=== PATIENT | male | born 1940 | race Caucasian/White ===

== ENCOUNTER 2016-11-10 20:12 | Observation (INO) | payer MEDICARE ==
[~2016-11-10] VITALS: Ht 170.2 cm; Wt 94.0 kg
[2016-11-10] VITALS (7 sets, daily range): BP systolic 152–195; BP diastolic 69–94; PULSE 67–100; RESP 18; TEMP 97.8; O2SAT 94–98
[~2016-11-10 20:12] MED LIST: AMLO10TA2 PO; ASPI81CH CHEW; ATOR1TAB18 PO; Aspirin Chew CHEW; CARV25TA PO; CLOP75TA PO; FIBE625T PO; GLIP10TA6 PO; ISOS10TA3 PO; LOSA100T PO; SITA50 PO
[2016-11-10] MEDS ORDERED: NITROGLYCERIN 2% OINT 1 GM PACKET TOP ONE (20:45)
[2016-11-10] MEDS ORDERED: SODIUM CHLORIDE 0.9% FLUSH 5 ML FLUSH IVF PRN ×2 (20:45→22:15)
--- NOTE | 2016-11-10 20:47 | PD ---
HPI . Chest pain Chief Complaint: Chest Pain Time Seen by Provider: 20:29 Travel History International Travel<30 days: No Contact w/Intl Traveler<30days: No History of Present Illness HPI Patient presents with chest pain which actually started about 3 days ago. It has been coming and going. It has been relieved by nitroglycerin. He states that he decided to come in for tonight because it has just persisted. He is currently having no pain. He does state that he had some associated lightheadedness and nausea. He denies shortness of breath. Patient states that he is currently undergoing cardiac rehabilitation and is using an exercise machine that exercises his upper extremities. He has been complaining with some left shoulder pain but is unsure if this is musculoskeletal pain due to the exercise or if it is cardiac pain. PFSH Past Medical History Asthma: No Autoimmune Disease: No Blood Disorders: No Cancer: Yes (MELANOMA) Cardiovascular Problems: Yes (STENTS, STENT BEHIND LEFT KNEE DR BARNES ) High Cholesterol: Yes Chemotherapy: No Chest Pain: No COPD: No Diabetes: Yes (INSULIN) Patient Takes Glucophage: No Gastrointestinal Disorders: No GERD: Yes Glaucoma: No Genitourinary: No Hepatitis: No Hiatal Hernia: No Hypertension: Yes Immune Disorder: No Musculoskeletal: No Neurologic: No Psychiatric: No Respiratory: Yes (SLEEP APNEA) Integumentary: No Radiation Therapy: No Sickle Cell Disease: No Thyroid Disease: No Ulcer: No Past Surgical History AICD: No Coronary Stent: Yes Joint Replacement: No Pacemaker: No Other Surgery: Yes (RIGHT INGUINAL HERNIA,GALL BLADDER) Social History Alcohol Use: Yes Tobacco Use: No Substance Use: No Allergies-Medications (Allergen,Severity, Reaction): Coded Allergies: No Known Allergies (Verified , 08/16/16) Reported Meds & Prescriptions Reported Meds & Active Scripts Active Reported Clopidogrel (Clopidogrel Bisulfate) 75 Mg Tab 75 Mg PO DAILY Losartan (Losartan Potassium) 100 Mg Tab 100 Mg PO DAILY Atorvastatin (Atorvastatin Calcium) 80 Mg Tab 80 Mg PO HS Amlodipine (Amlodipine Besylate) 10 Mg Tab 10 Mg PO DAILY Fibercon (Calcium Polycarbophil) 625 Mg Tab 625 Mg PO BID PRN Aspirin 81 Mg Chew 81 Mg CHEW DAILY Januvia (Sitagliptin Phosphate) 50 Mg Tab 50 Mg PO DAILY Carvedilol 25 Mg Tab 25 Mg PO BID Glipizide 10 Mg Tab 10 Mg PO HS Take 30 minutes before a meal Glipizide 10 Mg Tab 10 Mg PO DAILY Take 30 minutes before a meal Isosorbide Mononitrate 10 Mg Tab 60 Mg PO DAILY Take 2 doses 7 hours apart. Review of Systems Except as stated in HPI: all other systems reviewed are Neg General / Constitutional: Positive: Other (no diaphoresis), No: Fever, Chills HENT: Positive: Lightheadedness Cardiovascular: Positive: Chest Pain or Discomfort Respiratory: No: Shortness of Breath Gastrointestinal: Positive: Nausea Musculoskeletal: Positive: Myalgias (left shoulder pain) Physical Exam Narrative GENERAL: Healthy-appearing man who is in no acute distress. SKIN: Warm and dry. HEAD: Atraumatic. Normocephalic. EYES: Pupils equal and round. ENT: No nasal bleeding or discharge. Mucous membranes pink and moist. NECK: Trachea midline. Neck is supple. No JVD. CARDIOVASCULAR: Regular rate and rhythm. Heart sounds are normal. RESPIRATORY: No accessory muscle use. Lungs are clear with full movement throughout. GASTROINTESTINAL: Abdomen soft, non-tender, nondistended. MUSCULOSKELETAL: No obvious deformities. No edema. NEUROLOGICAL: Awake and alert. No obvious cranial nerve deficits. Motor grossly within normal limits. Normal speech. PSYCHIATRIC: Appropriate mood and affect; insight and judgment normal. Data Data Last Documented VS Vital Signs Date Time Temp Pulse Resp B/P Pulse Ox O2 Delivery O2 Flow Rate FiO2 11/10/16 21:12 97 Nasal Cannula 2 11/10/16 21:10 84 18 179/85 11/10/16 20:16 97.8 Orders Electrocardiogram (11/10/16 ) Basic Metabolic Panel (Bmp) (11/10/16 20:38) Ckmb (Isoenzyme) Profile (11/10/16 20:38) Complete Blood Count With Diff (11/10/16 20:38) Magnesium (Mg) (11/10/16 20:38) Prothrombin Time / Inr (Pt) (11/10/16 20:38) Act Partial Throm Time (Ptt) (11/10/16 20:38) Troponin I (11/10/16 20:38) Chest, Single Ap (11/10/16 20:38) Ecg Monitoring (11/10/16 20:38) Bilateral Bp Monitoring (11/10/16 20:38) Iv Access Insert/Monitor (11/10/16 20:38) Oximetry (11/10/16 20:38) Oxygen Administration (11/10/16 20:38) Nitroglycerin 2% Oint (Nitroglycerin 2% (11/10/16 20:45) Sodium Chloride 0.9% Flush (Ns Flush) (11/10/16 20:45) CKMB (11/10/16 20:45) CKMB% (11/10/16 20:45) Labs Laboratory Tests Test 11/10/16 20:45 White Blood Count 7.7 TH/MM3 Red Blood Count 4.98 MIL/MM3 Hemoglobin 15.1 GM/DL Hematocrit 44.1 % Mean Corpuscular Volume 88.7 FL Mean Corpuscular Hemoglobin 30.4 PG Mean Corpuscular Hemoglobin 34.3 % Concent Red Cell Distribution Width 13.8 % Platelet Count 160 TH/MM3 Mean Platelet Volume 10.2 FL Neutrophils (%) (Auto) 59.5 % Lymphocytes (%) (Auto) 22.8 % Monocytes (%) (Auto) 13.4 % Eosinophils (%) (Auto) 3.3 % Basophils (%) (Auto) 1.0 % Neutrophils # (Auto) 4.6 TH/MM3 Lymphocytes # (Auto) 1.7 TH/MM3 Monocytes # (Auto) 1.0 TH/MM3 Eosinophils # (Auto) 0.3 TH/MM3 Basophils # (Auto) 0.1 TH/MM3 CBC Comment DIFF FINAL Differential Comment Prothrombin Time 11.3 SEC Prothromb Time International 1.0 RATIO Ratio Activated Partial 26.5 SEC Thromboplast Time Sodium Level 135 MEQ/L Potassium Level 4.1 MEQ/L Chloride Level 101 MEQ/L Carbon Dioxide Level 24.1 MEQ/L Anion Gap 10 MEQ/L Blood Urea Nitrogen 24 MG/DL Creatinine 1.73 MG/DL Estimat Glomerular Filtration 39 ML/MIN Rate Random Glucose 271 MG/DL Calcium Level 8.7 MG/DL Magnesium Level 2.2 MG/DL Total Creatine Kinase 126 U/L Creatine Kinase MB 2.8 NG/ML Troponin I 0.02 NG/ML [facility] Medical Decision Making Medical Screen Exam Complete: Yes Emergency Medical Condition: Yes Medical Record Reviewed: Yes (patient was here in July with a NSTEMI treated with an LAD stent. He had an echo done at that time that showed an ejection fraction of 50-55%.) Interpretation(s) EKG shows normal sinus rhythm with no ST segment elevation or depression. Differential Diagnosis Differential diagnosis of chest pain includes but is not limited to musculoskeletal pain, pulmonary embolism, acute coronary syndrome, pneumonia, pleurisy Narrative Course Patient presents for evaluation of chest pain. He has a known cardiac history. He is status post stent in July. He states that he has done well since the stent until 3 days ago. He reports that the pain that he is experiencing currently is similar but not as severe as the pain that he had in July. CBC & BMP Diagram 11/10/16 20:45 Initial cardiac enzymes are negative. Chest x-ray to my interpretation is negative. The radiologist also reads it as no acute disease. Patient is amenable to admission to the chest pain center. Patient has remained pain-free here in the emergency department. He has been treated here with Nitropaste. Critical Care Narrative Aggregate critical care time was 45 minutes. Time to perform other separately billable procedures was not included in the critical care time. My time did not include minutes spent treating any other patients simultaneously or on activities that did not directly contribute to the patient's treatment. The services I provided to this patient were to treat and/or prevent clinically significant deterioration due to ACS, NSTEMI, STEMI I provided critical care services requiring my management, as noted below: Chart data review, documentation time, medication orders and management, vital sign assessments/reviewing monitor data, ordering and reviewing lab tests, ordering and interpreting/reviewing x-rays and diagnostic studies, care of the patient and discussion of the patient with the admitting physicians Diagnosis Primary Impression: Chest pain Qualified Code: R07.9 - Chest pain, unspecified type Admitting Information Admitting Physician Requests: Observation Condition: Stable Corie Engel MD Nov 10, 2016 20:47
[2016-11-10 21:19] LABS: AUTOMATED NEUTROPHIL # 4.6 TH/MM3 (1.8-7.7); BASOPHIL # 0.1 TH/MM3 (0-0.2); EOSINOPHIL # 0.3 TH/MM3 (0-0.4); EOSINOPHIL % 3.3 % (0.0-4.0); HEMATOCRIT 44.1 % (39.0-51.0); HEMO FLAGS DIFF FINAL; LYMPH % 22.8 % (9.0-44.0); LYMPHOCYTE # 1.7 TH/MM3 (1.0-4.8); MEAN CELL VOLUME 88.7 FL (80.0-100.0); MEAN CORPUSCULAR HEMOGLOBIN 30.4 PG (27.0-34.0); MEAN CORPUSCULAR HGB CONC 34.3 % (32.0-36.0); MONO % 13.4 % (0.0-8.0); NEUT % 59.5 % (16.0-70.0); PLATELET COUNT 160 TH/MM3 (150-450); RED BLOOD COUNT 4.98 MIL/MM3 (4.50-5.90); RED CELL DISTRIBUTION WIDTH 13.8 % (11.6-17.2); WHITE BLOOD COUNT 7.7 TH/MM3 (4.0-11.0)
[2016-11-10 21:25] LABS: APTT (PATIENT) 26.5 SEC (24.3-30.1); PROTHROMBIN TIME - PATIENT 11.3 SEC (9.8-11.6)
[2016-11-10 21:31] LABS: ANION GAP 10 MEQ/L (5-15); BICARBONATE 24.1 MEQ/L (21.0-32.0); BLOOD UREA NITROGEN 24 MG/DL (7-18); CHLORIDE 101 MEQ/L (98-107); GLOMERULAR FILTRATION RATE 39 ML/MIN (>89); MAGNESIUM 2.2 MG/DL (1.5-2.5); SODIUM (NA) 135 MEQ/L (136-145)
[2016-11-10 21:32] LABS: POTASSIUM 4.1 MEQ/L (3.5-5.1)
[2016-11-10 21:36] LABS: CREATINE KINASE 126 U/L (39-308)
[2016-11-10 21:49] LABS: CKMB 2.8 NG/ML (0.5-3.6)
--- NOTE | 2016-11-10 22:04 | RADRPT ---
EXAM DATE/TIME: 11/10/2016 20:39 [facility] COMPARISON: CHEST SINGLE AP, August 16, 2016, 0:44. INDICATIONS : Chest pain, nausea, and dizziness. MEDICAL HISTORY : None. SURGICAL HISTORY : Cardiac stent. ENCOUNTER: Initial ACUITY: 1 day PAIN SCORE: 5/10 LOCATION: chest FINDINGS: A single view of the chest demonstrates the lungs to be symmetrically aerated without evidence of mas s, infiltrate or effusion. The cardiomediastinal contours are unremarkable. Osseous structures are intact. CONCLUSION: No acute disease. Herb Rankin MD on November 10, 2016 at 22:02 Board Certified Radiologist. This report was verified electronically.
[2016-11-11 00:19] VITALS: BP 144/67; PULSE 67; RESP 18; TEMP 98.8; O2SAT 98
[2016-11-11 05:29] VITALS: BP 148/80; PULSE 68; RESP 21; TEMP 98.4; O2SAT 99
[2016-11-11 05:37] VITALS: O2SAT 95
[2016-11-11 07:42] VITALS: BP 165/84; PULSE 79; RESP 20; TEMP 98.1; O2SAT 94
[2016-11-11] MEDS ORDERED: SODIUM CHLORIDE 0.9% FLUSH 5 ML FLUSH IVF SCH (09:00)
[2016-11-11] MEDS ORDERED: CLOPIDOGREL 75 MG TAB PO SCH (10:00)
[2016-11-11] MEDS ORDERED: LOSARTAN 50 MG TAB PO SCH (10:00)
[2016-11-11] MEDS ORDERED: ISOSORBIDE MONONITRATE 20 MG TAB PO SCH (10:00)
[2016-11-11] MEDS ORDERED: ASPIRIN 81 MG CHEW TAB CHEW SCH (10:00)
[2016-11-11] MEDS ORDERED: GLUCAGON 1 MG/ML VIAL IM/SQ PRN (10:15)
[2016-11-11] MEDS ORDERED: DEXTROSE 50% IN WATER 50 ML VIAL(D50) IV PRN (10:15)
--- NOTE | 2016-11-11 10:18 | HHI.HP ---
[facility] Primary Care Physician Non-Staff Chief Complaint Chest pain History of Present Illness This is a 75-year-old male with history of CAD with stenting July 2016 presents with complaint of chest pain intermittently for 3 days. States he has had at least one episode a day. Yesterday he had 3 episodes. He states they have occurred with activity but nothing strenuous. He has been strenuous activities that have not produced his discomforts. He states he has been going to cardiac rehabilitation Sunday, Sunday, and Sunday since September 27. He has had intermittent nausea and diaphoresis with his discomforts the last 3 days. He also felt lightheaded yesterday. He took a nitroglycerin yesterday which he states helped the discomfort almost immediately. Prior that the discomforts have been lasting anywhere from 30 minutes to 3 hours. He has had no shortness of breath with the symptoms. He states that it does not feel similar to when eating his stent July last year. Denies recent illness. Denies fevers or chills. Reports compliance with all his medications. He states that he saw his supervisor travel trailer Dr. Jose North 2 weeks after having his heart catheterization. Review of Systems General: Patient denies fevers, chills recent, and recent travel HEENT: Patient denies headache, sore throat, difficulty swallowing. Cardiovascular: Has the chest discomfort as mentioned above. Denies sensation of heart beating rapidly or irregularly. Mild diaphoresis. No syncope. Respiratory: Denies shortness of breath or inspirational chest discomfort. Denies coughing wheezing or hemoptysis. GI: Patient had mild nausea. Patient denies vomiting, diarrhea, abdominal pain , bloody stools. Musculoskeletal: Patient denies joint pain or edema. Denies calf pain or edema. Neurovascular: [place] a little lightheaded a couple times. Patient denies numbness, tingling, weakness in extremities. Denies headache. Endocrine: Denies polyuria and polydipsia. Hematologic: Denies easy bruising. Skin: Denies rash or itching. Past Family Social History Allergies: Coded Allergies: No Known Allergies (Verified , 08/16/16) Past Medical History CAD with recent stenting July 2016. Also had stenting 2001.He had a stent to his left leg in 2011. Has history of hypertension, diabetes, hyperlipidemia , chronic kidney disease, GERD, obesity, and peripheral vascular disease. Past Surgical History He has had heart catheterizations with stenting. He has had stenting for peripheral vascular disease in his left leg. Right inguinal hernia repair and cholecystectomy. Reported Medications Reported Meds & Active Scripts Active Reported Clopidogrel (Clopidogrel Bisulfate) 75 Mg Tab 75 Mg PO DAILY Losartan (Losartan Potassium) 100 Mg Tab 100 Mg PO DAILY Atorvastatin (Atorvastatin Calcium) 80 Mg Tab 80 Mg PO HS Amlodipine (Amlodipine Besylate) 10 Mg Tab 10 Mg PO DAILY Fibercon (Calcium Polycarbophil) 625 Mg Tab 625 Mg PO BID PRN Aspirin 81 Mg Chew 81 Mg CHEW DAILY Januvia (Sitagliptin Phosphate) 50 Mg Tab 50 Mg PO DAILY Carvedilol 25 Mg Tab 25 Mg PO BID Glipizide 10 Mg Tab 10 Mg PO HS Take 30 minutes before a meal Glipizide 10 Mg Tab 10 Mg PO DAILY Take 30 minutes before a meal Isosorbide Mononitrate 10 Mg Tab 60 Mg PO DAILY Take 2 doses 7 hours apart. Active Ordered Medications Current Medications Medications (Trade) Dose Ordered Sig/Erich Route Start Time Stop Time Status Last Admin (NS Flush) 2 ml UNSCH PRN IVF 11/10/16 20:45 (NS Flush) 2 ml UNSCH PRN IVF 11/10/16 22:15 (NS Flush) 2 ml BID IVF 11/11/16 09:00 11/11/16 09:09 (Norvasc) 10 mg DAILY PO 11/11/16 10:00 (Aspirin Chew) 81 mg DAILY CHEW 11/11/16 10:00 (Lipitor) 80 mg HS PO 11/11/16 21:00 (Coreg) 25 mg BID PO 11/11/16 21:00 (Plavix) 75 mg DAILY PO 11/11/16 10:00 (Ismo) 60 mg DAILY PO 11/11/16 10:00 (Cozaar) 100 mg DAILY PO 11/11/16 10:00 (D50w (Vial) Inj) 25 ml UNSCH PRN IV 11/11/16 10:15 (Glucagon Inj) 1 mg UNSCH PRN IM/SQ 11/11/16 10:15 Family History His father had CAD. His brother has CAD. Social History Patient has never smoked. He denies illicit drugs. He has on average 2 beers per day. He has been for 29 years. Physical Exam Vital Signs Vital Signs Date Time Temp Pulse Resp B/P Pulse Ox O2 Delivery O2 Flow Rate FiO2 11/11/16 07:42 98.1 79 20 165/84 94 11/11/16 05:37 95 Nasal Cannula 3.00 11/11/16 05:29 98.4 68 21 148/80 99 11/11/16 00:19 98.8 67 18 144/67 98 11/10/16 23:45 67 11/10/16 23:34 67 11/10/16 22:35 98 Nasal Cannula 3.00 11/10/16 22:12 80 18 152/69 97 11/10/16 21:12 97 Nasal Cannula 2 11/10/16 21:12 97 Room Air 11/10/16 21:10 84 18 179/85 97 11/10/16 20:21 97 Nasal Cannula 11/10/16 20:16 97.8 100 18 195/94 94 Room Air Physical Exam GENERAL: This is a well-nourished, well-developed patient, in no apparent distress. Patient speaks in clear complete sentences. Patient is pleasant. HEENT: Head is atraumatic and normocephalic. Neck is supple without lymphadenopathy and trachea is midline. No JVD or carotid bruits. CARDIOVASCULAR: Regular rate and rhythm without murmurs, gallops, or rubs. RESPIRATORY: Clear to auscultation. Breath sounds equal bilaterally. No wheezes , rales, or rhonchi. Chest wall is nontender. No use of accessory muscles. GASTROINTESTINAL: Abdomen is nontender, nondistended. Abdomen soft. No obvious pulsatile mass or bruit. No CVA tenderness. Strong femoral pulses bilaterally. Normal bowel sounds in all quadrants. MUSCULOSKELETAL: Patient is moving upper and lower extremities freely. No calf tenderness or edema, no Homans sign. Strong pulses in upper and lower extremities. NEUROLOGICAL: Patient is alert and oriented. Cranial nerves 2-12 are grossly intact. No focal deficits and speech is clear. SKIN: No rash and turgor is normal. Laboratory Laboratory Tests Test 11/10/16 11/10/16 11/11/16 20:45 23:45 03:00 White Blood Count 7.7 Red Blood Count 4.98 Hemoglobin 15.1 Hematocrit 44.1 Mean Corpuscular Volume 88.7 Mean Corpuscular Hemoglobin 30.4 Mean Corpuscular Hemoglobin 34.3 Concent Red Cell Distribution Width 13.8 Platelet Count 160 Mean Platelet Volume 10.2 Neutrophils (%) (Auto) 59.5 Lymphocytes (%) (Auto) 22.8 Monocytes (%) (Auto) 13.4 Eosinophils (%) (Auto) 3.3 Basophils (%) (Auto) 1.0 Neutrophils # (Auto) 4.6 Lymphocytes # (Auto) 1.7 Monocytes # (Auto) 1.0 Eosinophils # (Auto) 0.3 Basophils # (Auto) 0.1 CBC Comment DIFF FINAL Differential Comment Prothrombin Time 11.3 Prothromb Time International 1.0 Ratio Activated Partial 26.5 Thromboplast Time Sodium Level 135 Potassium Level 4.1 Chloride Level 101 Carbon Dioxide Level 24.1 Anion Gap 10 Blood Urea Nitrogen 24 Creatinine 1.73 Estimat Glomerular Filtration 39 Rate Random Glucose 271 Calcium Level 8.7 Magnesium Level 2.2 Total Creatine Kinase 126 93 84 Creatine Kinase MB 2.8 Troponin I 0.02 0.02 0.03 Result Diagram: 11/10/16204411/10/162044 Imaging Last 24 hours Impressions Chest X-Ray 11/10/162037 Signed Impressions: Service Date/Time: Thursday, November 10, 2016 20:39 - CONCLUSION: No acute disease. Herb Rankin MD Course EKGs have sinus rhythm with borderline first-degree AV block. Nonspecific inferior ST changes. Assessment and Plan Assessment and Plan * Chest pain: Patient has history of CAD. He has ruled out with serial cardiac enzymes and EKGs. He will be seen by Dr. Ag of cardiology and the chest pain center. He will undergo a Lexiscan. He would likely be discharged home if his stress test were to be nonischemic. At that time he would then need to follow-up with his supervisor travel trailer Dr. Jose North. * CAD: Patient has had stents in the past. He will need to follow-up his supervisor travel trailer and resume his medications. Will reassess with stress testing. * Diabetes: We'll hold his medication at this time and monitor with sliding scale insulin coverage. He resume his medication discharge and follow diabetic diet. * Chronic kidney disease: Patient states that his primary care physician has been monitoring his renal function. He need to continue follow-up with his PCP or with nephrology. * Hypertension: Continue current medications. * Hyperlipidemia: Continue current medication. * GERD: Continue current medication. * Peripheral vascular disease: Continue current medication. Thomas Tiwari Nov 11, 2016 10:18
[2016-11-11] MEDS ORDERED: INSULIN ASPART SUPPLEMENTAL SCALE SQ SCH (11:00)
[2016-11-11] MEDS ORDERED: REGADENOSON INJ 0.4 MG/5 ML SYR ONE (12:41)
[2016-11-11 13:00] VITALS: PULSE 80
--- NOTE | 2016-11-11 14:00 | RADRPT ---
EXAM DATE/TIME: 11/11/2016 12:22 [facility] COMPARISON: No previous studies available for comparison. INDICATIONS : Mid chest pain with nausea and diaphoresis for three days. Angina. DOSE: 25.7 mCi Tc99m Myoview at stress. 8.1 mCi Tc99m Myoview at rest. 0.4 mg Lexiscan STRESS SYMPTOMS: None. EJECTION FRACTION: 49% MEDICAL HISTORY : Cardiovascular disease. Diabetes mellitus type 2. Hypertension. SURGICAL HISTORY : Coronary artery stent. Cholecystectomy. Inguinal hernia repair. ENCOUNTER: Initial ACUITY: 3 days PAIN SCALE: 6/10 LOCATION: Midsternal chest TECHNIQUE: The patient underwent pharmacologic stress with infusion of prescribed dose. Continuous ECG tracing was monitored during stress. Gated SPECT imaging was performed after stress and conventional SPECT i maging was performed at rest. The examination was performed on a SPECT/CT scanner, both attenuation and non-corrected datasets were reviewed. FINDINGS: DISTRIBUTION: The maximum perfused segment at stress is in the lateral wall. PERFUSION STUDY: The pattern of perfusion at stress is within normal limits. GATED STUDY: Mild hypokinesia seen inferiorly and septal. CONCLUSION: No stress-induced ischemia. Mild septal and inferior wall hypokinesia with an overall normal left rob tricular ejection fraction. RISK CATEGORY: Low Herb Infante MD on November 11, 2016 at 13:57 Board Certified Radiologist. This report was verified electronically.
--- NOTE | 2016-11-11 14:38 | HHI.DCPOC ---
Discharge Care Plan Diagnosis: (1) Chest pain (2) Coronary artery disease (3) Hypertension (4) Hyperlipidemia (5) Renal insufficiency (6) Type 2 diabetes mellitus (7) Peripheral vascular disease (8) H/O heart artery stent Goals to Promote Your Health * To prevent worsening of your condition and complications * To maintain your health at the optimal level Directions to Meet Your Goals Take your medications as prescribed Follow your dietary instruction Follow activity as directed Keep your appointments as scheduled Take your immunizations and boosters as scheduled If your symptoms worsen call your PCP, if no PCP go to Urgent Care Center or Emergency Room Smoking is Dangerous to Your Health. Avoid second hand smoke Call the 24-hour hour crisis hotline for domestic abuse at Thomas Tiwari Nov 11, 2016 14:38
--- NOTE | 2016-11-11 16:44 | TR ---
Date Performed: 11/11/2016 Time Performed: 12:56:25 DOCTOR: Laith Ag DRUG LIST: CLINICAL HISTORY: CHEST PAIN REASON FOR TEST: REASON FOR ENDING: OBSERVATION: CONCLUSION: Lexiscan stress test was performed under standard four minute protocol. Radionuclid e was injected one minute prior to ending the test. No electrocardiographic abormalities were present to suggest ischemia. Nuclear imaging and interpretation are pending. COMMENTS:
--- NOTE | 2016-11-11 16:45 | EKG ---
Date Performed: 11/11/2016 Time Performed: 03:00:49 PTAGE: 75 years EKG: Sinus rhythm WITH FIRST DEGREE AV BLOCK ABNORMAL ECG PREVIOUS TRACING : 11/10/2016 20.21 Since previous tracing, no significant change noted DOCTOR: Laith Ag Interpretating Date/Time 11/11/2016 16:44:51
--- NOTE | 2016-11-11 16:47 | EKG ---
Date Performed: 11/10/2016 Time Performed: 23:41:53 PTAGE: 75 years EKG: Sinus rhythm NONSPECIFIC T-WAVE ABNORMALITY BORDERLINE ECG Since PREVIOUS TRACING , no significant change noted DOCTOR: Laith Ag Interpretating Date/Time 11/11/2016 16:45:41
--- NOTE | 2016-11-11 17:04 | EKG ---
Date Performed: 11/10/2016 Time Performed: 20:21:44 PTAGE: 75 years EKG: Sinus rhythm When compared to previous tracing, premature ventricular Contractions have resolved and the ST-T jesus nges have improved. NORMAL ECG PREVIOUS TRACING : 08/16/2016 08.15 DOCTOR: Laith Ag Interpretating Date/Time 11/11/2016 17:03:46
[2016-11-11] MEDS ORDERED: CARVEDILOL 12.5 MG TAB PO SCH (21:00)
[2016-11-11] MEDS ORDERED: ATORVASTATIN 80 MG TAB PO SCH (21:00)
== END 2016-11-11 16:09 | disposition home or self-care (01) ==
LOC: NEPC 20:12 → NEDA 22:13 → NEPHCDU 11-11 00:08
PROVIDERS: ADMIT Internal Medicine Cardiovascular Disease; ATTEND Internal Medicine Cardiovascular Disease
DX: R07.89 Other chest pain (principal); I25.10 Atherosclerotic heart disease of native coronary artery without angina pectoris; I12.9 Hypertensive chronic kidney disease with stage 1 through stage 4 chronic kidney disease, or unspecified chronic kidney disease; N18.9 Chronic kidney disease, unspecified; E78.5 Hyperlipidemia, unspecified; E11.51 Type 2 diabetes mellitus with diabetic peripheral angiopathy without gangrene; E78.00 Pure hypercholesterolemia, unspecified; G47.30 Sleep apnea, unspecified; I44.0 Atrioventricular block, first degree; K21.9 Gastro-esophageal reflux disease without esophagitis; Z95.5 Presence of coronary angioplasty implant and graft; Z85.820 Personal history of malignant melanoma of skin
CPT/HCPCS: 71010; 78452; 80048; 82550; 82552; 82948; 83735; 84484; 85025; 85610; 85730; 93005; 93017; 99291; A9502; G0378; J2785